=== PATIENT | female | born 1935 | race African-American/Black ===

== ENCOUNTER → 2016-06-19 | Outpatient (CLI) | payer OTHER ==
[2015-07-20 10:48] VITALS: BP 152/72
[2016-06-19 09:56] LABS: BASOPHILS # (AUTO) 0.1 X10^3/uL (0.0-0.1); BASOPHILS % (AUTO) 1.2 % (0.2-1.0); EOSINOPHILS # (AUTO) 0.2 x10^3/uL (0.0-0.2); HEMATOCRIT 37.8 % (36.0-47.0); HEMOGLOBIN 12.5 g/dL (12.0-16.0); LYMPHOCYTES # (AUTO) 2.6 X10^3/uL (1.3-2.9); LYMPHOCYTES % (AUTO) 39.1 % (21.0-51.0); MEAN CORPUSCULAR HEMOGLOBIN 28.3 pg (27.0-34.0); MEAN CORPUSCULAR HGB CONC 33.2 g/dL (33.0-35.0); MEAN CORPUSCULAR VOLUME 85.2 fL (80.0-100.0); MEAN PLATELET VOLUME 6.8 fL (7.4-11.0); MONOCYTES # (AUTO) 0.5 x10^3/uL (0.3-0.8); MONOCYTES % (AUTO) 7.9 % (0.0-13.0); NEUTROPHILS # (AUTO) 3.2 x10^3/uL (2.2-4.8); NEUTROPHILS % (AUTO) 48.8 % (42.0-75.0); PLATELET COUNT 301 X10^3/uL (150.0-450.0); RED BLOOD COUNT 4.44 X10^6/uL (3.5-5.4); RED CELL DISTRIBUTION WIDTH 13.3 % (11.6-16.5); WHITE BLOOD COUNT 6.6 X10^3/uL (3.6-10.0)
[2016-06-19 10:10] LABS: HEMOGLOBIN A1C 6.7 % (4.5-6.2)
[2016-06-19 10:53] LABS: ALBUMIN 3.8 g/dL (3.4-5.0); BLOOD UREA NITROGEN 30 mg/dL (7-18); CALCIUM 9.6 mg/dL (8.5-10.1); CARBON DIOXIDE 28.7 mmol/L (21-32); CHLORIDE 102 mmol/L (98-107); CHOL/HDL RATIO 2.3 (0.0-5.0); CHOLESTEROL 195 mg/dL (0-200); COR NA(FOR HYPERGLY) 138 mmol/L (136-145); CREATININE 1.68 mg/dL (0.55-1.02); GLUCOSE 117 mg/dL (65-99); HDL CHOLESTEROL 85 mg/dL (40-60); PHOSPHORUS 3.5 mg/dL (2.6-4.7); SODIUM 138 mmol/L (136-145); TRIGLYCERIDES 44 mg/dL (0-150); URIC ACID 6.3 mg/dL (2.6-6.0); eGFR BLACK RACES 38 (>60); eGFR NON BLACK RACES 31 (>60)
== END ==
LOC: LAB 09:34
PROVIDERS: ATTEND Internal Medicine
DX: I12.9 Hypertensive chronic kidney disease with stage 1 through stage 4 chronic kidney disease, or unspecified chronic kidney disease (principal); N18.3 Chronic kidney disease, stage 3 (moderate); E11.9 Type 2 diabetes mellitus without complications
CPT/HCPCS: 36415; 80061; 80069; 83036; 84550; 85025

== ENCOUNTER → 2016-10-23 | Outpatient (CLI) | payer OTHER ==
[2015-07-20 10:48] VITALS: BP 152/72
[2016-10-23 08:56] LABS: BASOPHILS # (AUTO) 0.1 X10^3/uL (0.0-0.1); BASOPHILS % (AUTO) 1.3 % (0.2-1.0); EOSINOPHILS # (AUTO) 0.2 x10^3/uL (0.0-0.2); EOSINOPHILS % (AUTO) 3.3 % (0.9-2.9); HEMATOCRIT 39.4 % (36.0-47.0); HEMOGLOBIN 13.1 g/dL (12.0-16.0); LYMPHOCYTES # (AUTO) 2.6 X10^3/uL (1.3-2.9); LYMPHOCYTES % (AUTO) 38.7 % (21.0-51.0); MEAN CORPUSCULAR HGB CONC 33.2 g/dL (33.0-35.0); MEAN CORPUSCULAR VOLUME 87.3 fL (80.0-100.0); MEAN PLATELET VOLUME 7.7 fL (7.4-11.0); MONOCYTES # (AUTO) 0.5 x10^3/uL (0.3-0.8); MONOCYTES % (AUTO) 7.5 % (0.0-13.0); NEUTROPHILS # (AUTO) 3.3 x10^3/uL (2.2-4.8); NEUTROPHILS % (AUTO) 49.2 % (42.0-75.0); PLATELET COUNT 276 X10^3/uL (150.0-450.0); RED BLOOD COUNT 4.52 X10^6/uL (3.5-5.4); RED CELL DISTRIBUTION WIDTH 13.9 % (11.6-16.5); WHITE BLOOD COUNT 6.7 X10^3/uL (3.6-10.0)
[2016-10-23 09:02] LABS: HEMOGLOBIN A1C 6.3 % (4.5-6.2)
[2016-10-23 09:09] LABS: ALBUMIN 3.7 g/dL (3.4-5.0); BLOOD UREA NITROGEN 31 mg/dL (7-18); CALCIUM 9.6 mg/dL (8.5-10.1); CARBON DIOXIDE 31.2 mmol/L (21-32); CHLORIDE 101 mmol/L (98-107); CHOL/HDL RATIO 1.9 (0.0-5.0); CHOLESTEROL 199 mg/dL (0-200); COR NA(FOR HYPERGLY) 138 mmol/L (136-145); CREATININE 1.63 mg/dL (0.55-1.02); HDL CHOLESTEROL 104 mg/dL (40-60); PHOSPHORUS 3.3 mg/dL (2.6-4.7); SODIUM 138 mmol/L (136-145); TRIGLYCERIDES 49 mg/dL (0-150); eGFR BLACK RACES 39 (>60); eGFR NON BLACK RACES 32 (>60)
== END | disposition home or self-care (01) | DRG 684 ==
LOC: LAB 08:32
PROVIDERS: ATTEND Internal Medicine
DX: I12.9 Hypertensive chronic kidney disease with stage 1 through stage 4 chronic kidney disease, or unspecified chronic kidney disease (principal); N18.3 Chronic kidney disease, stage 3 (moderate); E11.9 Type 2 diabetes mellitus without complications
CPT/HCPCS: 36415; 80061; 80069; 83036; 85025

== ENCOUNTER → 2017-02-03 | Outpatient (CLI) | payer OTHER ==
[2015-07-20 10:48] VITALS: BP 152/72
--- NOTE | 2017-02-08 08:21 | MG ---
HISTORY: Screening, history of benign left lumpectomy Comparison: 11/10/2015 FINDINGS: CC and MLO projections of the right and left breast were obtained. Scattered fibroglandular tissue i s present. No significant architectural distortion, mass or clustered microcalcifications can be obs erved to suggest malignancy. No skin thickening or nipple retraction is appreciated. No pathologica l lymphadenopathy can be identified. Vascular calcifications are present in both breasts. IMPRESSION: NO RADIOGRAPHIC EVIDENCE OF MALIGNANCY. ACR CATEGORY 2: Benign findings. FOLLOW-UP EXAM 1 YEAR. Diagnostic CAD was utilized and reviewed. * 0 (ZERO) - ASSESSMENT INCOMPLETE; ADDITIONAL IMAGING IS NEEDED. * / (ONE) - NEGATIVE. * 2/II (TWO) - BENIGN FINDINGS. * 3/III (THREE) - PROBABLY BENIGN FINDING; SHORT INTERVAL FOLLOW-UP SUGGESTED. * 4/IV (FOUR) - SUSPICIOUS ABNORMALITY; BIOPSY SHOULD BE CONSIDERED. * 5/V - HIGHLY SUSPICIOUS OF MALIGNANCY; BIOPSY SHOULD BE PERFORMED. A NEGATIVE X-RAY REPORT SHOULD NOT DELAY BIOPSY IF A DOMINANT OR CLINICALLY SUSPICIOUS MASS IS PRESENT; 4 TO 8 PERCENT OF CANCERS ARE NOT IDENTIFIED BY X-RAY. A NEGA TIVE REPORT MAY REINFORCE THE CLINICAL IMPRESSION. ADENOSIS AND DENSE BREASTS MAY OBSCURE AN UNDERLY ING NEOPLASM. Reported By:
== END ==
LOC: RAD 10:40
PROVIDERS: ATTEND Nurse Practitioner Family
DX: Z12.31 Encounter for screening mammogram for malignant neoplasm of breast (principal)
CPT/HCPCS: 77067

== ENCOUNTER → 2017-02-14 | Outpatient (CLI) | payer OTHER ==
[2015-07-20 10:48] VITALS: BP 152/72
[2017-02-14 09:53] LABS: BASOPHILS # (AUTO) 0.1 X10^3/uL (0.0-0.1); EOSINOPHILS # (AUTO) 0.3 x10^3/uL (0.0-0.2); EOSINOPHILS % (AUTO) 2.5 % (0.9-2.9); HEMATOCRIT 36.4 % (36.0-47.0); HEMOGLOBIN 12.2 g/dL (12.0-16.0); LYMPHOCYTES # (AUTO) 4.3 X10^3/uL (1.3-2.9); LYMPHOCYTES % (AUTO) 40.3 % (21.0-51.0); MEAN CORPUSCULAR HEMOGLOBIN 28.4 pg (27.0-34.0); MEAN CORPUSCULAR HGB CONC 33.4 g/dL (33.0-35.0); MEAN CORPUSCULAR VOLUME 84.9 fL (80.0-100.0); MEAN PLATELET VOLUME 7.6 fL (7.4-11.0); MONOCYTES # (AUTO) 0.7 x10^3/uL (0.3-0.8); MONOCYTES % (AUTO) 6.7 % (0.0-13.0); NEUTROPHILS # (AUTO) 5.2 x10^3/uL (2.2-4.8); NEUTROPHILS % (AUTO) 49.5 % (42.0-75.0); PLATELET COUNT 223 X10^3/uL (150.0-450.0); RED BLOOD COUNT 4.29 X10^6/uL (3.5-5.4); RED CELL DISTRIBUTION WIDTH 13.8 % (11.6-16.5)
[2017-02-14 10:00] LABS: HEMOGLOBIN A1C 6.8 % (4.5-6.2)
[2017-02-14 10:01] LABS: ALBUMIN 3.7 g/dL (3.4-5.0); BLOOD UREA NITROGEN 34 mg/dL (7-18); CALCIUM 9.4 mg/dL (8.5-10.1); CHLORIDE 99 mmol/L (98-107); CHOLESTEROL 171 mg/dL (0-200); CREATININE 1.67 mg/dL (0.55-1.02); HDL CHOLESTEROL 86 mg/dL (40-60); PHOSPHORUS 3.7 mg/dL (2.6-4.7); SODIUM 136 mmol/L (136-145); TRIGLYCERIDES 43 mg/dL (0-150); URIC ACID 6.7 mg/dL (2.6-6.0); eGFR BLACK RACES 38 (>60); eGFR NON BLACK RACES 31 (>60)
[2017-02-14 10:21] LABS: WHITE BLOOD COUNT 10.6 X10^3/uL (3.6-10.0)
[2017-02-14 10:24] LABS: PLATELET MORPHOLOGY COMMENT NORMAL (NORMAL)
== END ==
LOC: LAB 09:29
PROVIDERS: ATTEND Internal Medicine
DX: I12.9 Hypertensive chronic kidney disease with stage 1 through stage 4 chronic kidney disease, or unspecified chronic kidney disease (principal); N18.3 Chronic kidney disease, stage 3 (moderate); E11.22 Type 2 diabetes mellitus with diabetic chronic kidney disease
CPT/HCPCS: 36415; 80061; 80069; 83036; 84550; 85025

== ENCOUNTER → 2017-04-15 | Outpatient (CLI) | payer OTHER ==
[2015-07-20 10:48] VITALS: BP 152/72
--- NOTE | 2017-04-15 14:19 | RAD ---
Examination: Right shoulder, three views History: Neck and shoulder pain Findings: There is mild glenohumeral joint narrowing with more severe degenerative change at the acro mioclavicular joint. The humeral head is in normal position. No bone destruction or periarticular johny cification is identified. Impression: Osteoarthritis, especially involving the acromioclavicular joint. No acute findings. Reported By:
--- NOTE | 2017-04-15 14:23 | RAD ---
Examination: Cervical spine, three views History: Neck and shoulder pain Findings: There is extensive hypertrophic bony fusion noted anteriorly extending from C4 to C7. No fracture is seen. There is minimal degenerative retrolisthesis at C5-6. The atlantoaxial complex is i ntact. Impression: Extensive anterior hyperostosis at levels described is suggestive of DISH. This hypertrop hic bone impinges on the posterior wall of the hypopharynx and may be responsible for cervical dysp hagia. No acute features are demonstrated. Reported By:
== END | disposition home or self-care (01) | DRG 554 ==
LOC: RAD 13:25
PROVIDERS: ATTEND Internal Medicine Cardiovascular Disease
DX: M19.90 Unspecified osteoarthritis, unspecified site (principal); M53.82 Other specified dorsopathies, cervical region; M19.011 Primary osteoarthritis, right shoulder
CPT/HCPCS: 72040; 73030

== ENCOUNTER → 2017-05-25 | Outpatient (CLI) | payer OTHER ==
[2015-07-20 10:48] VITALS: BP 152/72
== END ==
LOC: RAD 15:50
PROVIDERS: ATTEND Internal Medicine Cardiovascular Disease
DX: I50.9 Heart failure, unspecified (principal); M19.90 Unspecified osteoarthritis, unspecified site
CPT/HCPCS: 93306

== ENCOUNTER → 2017-05-28 | Outpatient (CLI) | payer OTHER ==
[2015-07-20 10:48] VITALS: BP 152/72
[2017-05-28 09:49] LABS: BASOPHILS # (AUTO) 0.1 X10^3/uL (0.0-0.1); BASOPHILS % (AUTO) 1.2 % (0.2-1.0); EOSINOPHILS # (AUTO) 0.2 x10^3/uL (0.0-0.2); EOSINOPHILS % (AUTO) 2.3 % (0.9-2.9); HEMOGLOBIN 12.5 g/dL (12.0-16.0); LYMPHOCYTES # (AUTO) 2.7 X10^3/uL (1.3-2.9); LYMPHOCYTES % (AUTO) 36.3 % (21.0-51.0); MEAN CORPUSCULAR HEMOGLOBIN 28.8 pg (27.0-34.0); MEAN CORPUSCULAR HGB CONC 33.7 g/dL (33.0-35.0); MEAN CORPUSCULAR VOLUME 85.3 fL (80.0-100.0); MEAN PLATELET VOLUME 6.7 fL (7.4-11.0); MONOCYTES # (AUTO) 0.5 x10^3/uL (0.3-0.8); MONOCYTES % (AUTO) 7.1 % (0.0-13.0); NEUTROPHILS % (AUTO) 53.1 % (42.0-75.0); PLATELET COUNT 328 X10^3/uL (150.0-450.0); RED BLOOD COUNT 4.33 X10^6/uL (3.5-5.4); RED CELL DISTRIBUTION WIDTH 13.4 % (11.6-16.5); WHITE BLOOD COUNT 7.5 X10^3/uL (3.6-10.0)
[2017-05-28 10:03] LABS: HEMOGLOBIN A1C 6.3 %
[2017-05-28 10:05] LABS: ALBUMIN 4.1 g/dL (3.4-5.0); BLOOD UREA NITROGEN 30 mg/dL (7-18); CALCIUM 9.6 mg/dL (8.5-10.1); CHLORIDE 100 mmol/L (98-107); CHOL/HDL RATIO 2.2 (0.0-5.0); CHOLESTEROL 194 mg/dL (0-200); COR NA(FOR HYPERGLY) 136 mmol/L (136-145); CREATININE 1.65 mg/dL (0.55-1.02); HDL CHOLESTEROL 89 mg/dL (40-60); PHOSPHORUS 3.6 mg/dL (2.6-4.7); SODIUM 136 mmol/L (136-145); TRIGLYCERIDES 42 mg/dL (0-150); URIC ACID 6.6 mg/dL (2.6-6.0); eGFR BLACK RACES 38 (>60); eGFR NON BLACK RACES 32 (>60)
== END ==
LOC: LAB 09:26
PROVIDERS: ATTEND Internal Medicine
DX: I12.9 Hypertensive chronic kidney disease with stage 1 through stage 4 chronic kidney disease, or unspecified chronic kidney disease (principal); N18.3 Chronic kidney disease, stage 3 (moderate); E11.22 Type 2 diabetes mellitus with diabetic chronic kidney disease
CPT/HCPCS: 36415; 80061; 80069; 83036; 84550; 85025

== ENCOUNTER 2017-06-27 14:06 | Observation (INO) | payer OTHER ==
[2017-06-27 14:19] VITALS: BMI 30.2
--- NOTE | 2017-06-27 14:38 | DR.HTN ---
HPI - Time Seen Time seen: 14:50 - Primary Care Physician Primary Care Physician: HONG PETIT, CONSTRUCTION JOB COST ESTIMATOR - Complaints Chief Complaint Doctors Comments: Patient states that while she was in [facility] she was seen in the ED for hypertension and was advised to follow up when she returned home. She also complains of upper back pain. Chief Complaint:: PT C/O TROUBLE BREATHING AND PAIN TO HER MID BACK , AND THAT MAYA KAUFMAN SAID THE LAST TIME SHE SAW HIM HEARD FLUID, PT APPERS TO BE IN NO DISTRESS, AND HER LUNGS ARE CLEAR BILATERALY RESP EVEN AND NON-LABORDED, AND I CALLED HONG AND SHE COULD NOT SEE ME TILL 330 AND I CAN'T WAIT.. BR Self Treatment fo Chief Complaint: PT C/O INCREASED SOB ON EXERSION... PT APPEARS TO VERY WORRISOME ABOUT HER HEALTH .. BR - Source History Provided: Patient - Mode of Arrival Mode of Arrival: Ambulatory - Timing Onset of Chief Complaint: 05/16/17 PMH - PMH Past Medical History: Yes Past Medical History: Anemia, Coronary Artery Disease, Diabetes, Hypertension Past Surgical History: Yes Surgical History: Appendectomy, Cholecystectomy, Hysterectomy Past Surgical History Comment: LEFT MASECTOMY. - Family History History of Family Medical Conditions: Yes Family Medical History: [place], Coronary Artery Disease - Social History Does patient currently use any type of tobacco product: No Have you used tobacco products in the last 12 months: No Type of Tobacco Use: None Does any household member use tobacco: No Alcohol Use: None Do you use any recreational Drugs:: No Lives With: Alone Lives Where: Home - infectious screening In the last 2 months have you had wt loss of >10#?: NO Have you had fever, night sweats or hemotysis?: No Have you traveled outside the country in the last 6 months?: No Isolation: Standard ROS - Review of Systems Constitutional: No Symptoms Reported Eyes: No Symptoms Reported ENTM: No Symptoms Reported Respiratoy: No Symptoms Reported Cardiovascular: No Symptoms Reported Gastrointestinal/Abdominal: No Symptoms Reported Genitourinary: No Symptoms Reported Neurological: No Symptoms Reported Musculoskeletal: No Symptoms Reported Integumentary: No Symptoms Reported Hematologic/Lymphatic: No Symptoms Reported Endocrine: No Symptoms Reported Psychiatric: No Symptoms Reported All Other Systems: Reviewed and Negative PE - Vital Signs Vitals: Temperature 98.9 F Pulse Rate 81 Respiratory Rate 18 Blood Pressure [Left Arm] 160/75 Blood Pressure [Right Arm] 167/71 Blood Pressure 144/65 O2 Sat by Pulse Oximetry 98 - General Limitations: No Limitations General Appearance: Alert, In No Apparent Distress - Head Head Exam: Normal Inspection, Atraumatic - Eyes Eye exam: Normal Appearance, PERRL, EOMI Pupils: Regular, Round: Bilateral Sclera/Conjunctival: Normal Inspection: Bilateral - ENT ENT Exam: Normal Exam, Normal Oropharynx - Neck Neck Exam: Normal Inspection - Chest Chest Inspection: Normal Inspection, Symmetric Chest Wall Rise - Respiratory Respiratory Exam: Normal Lung Sounds Bilat Respiratory Exam: Bilateral Clear to Auscultation - Cardiovascular Cardiovascular Exam: Regular Rate, Normal Rhythm - Abdominal Exam Abdominal Exam: Normal Inspection Abdominal Tenderness: negative: RUQ, RLQ, LUQ, LLQ, Epigastrium, Suprapubic, Diffuse, Mild, Moderate, Severe, Other - Extremities Extremities Exam: Normal Inspection, Full ROM - Back Back Exam: Normal Inspection, Full ROM, Vertebral Tenderness (upper back) - Neurologic Neurological Exam: Alert, Oriented X3, CN II-XII Intact Cranial Nerve Exam: EOM Function (II, III, IV, ): Normal Cerebellar Function: Normal Gait Motor Strength - LUE: 3/5 Motor Strength - LLE: 3/5 DTR: achilles tendon (L): 2+ - Psychiatric Psychiatric Exam: Normal Affect, Normal Mood, Depressed - Skin Skin Exam: Intact ROR - Labs Reviewed Result Diagrams: 06/27/17 14:40 06/27/17 14:40 Laboratory: WBC 5.8 X10^3/uL (3.6-10.0) 06/27/17 14:40 RBC 4.23 X10^6/uL (3.5-5.4) 06/27/17 14:40 Hgb 12.2 g/dL (12.0-16.0) 06/27/17 14:40 Hct 35.9 % (36.0-47.0) L 06/27/17 14:40 MCV 84.8 fL (80.0-100.0) 06/27/17 14:40 MCH 29.0 pg (27.0-34.0) 06/27/17 14:40 MCHC 34.1 g/dL (33.0-35.0) 06/27/17 14:40 RDW 13.1 % (11.6-16.5) 06/27/17 14:40 Plt Count 316 X10^3/uL (150.0-450.0) 06/27/17 14:40 MPV 6.6 fL (7.4-11.0) L 06/27/17 14:40 Neut % (Auto) 63.4 % (42.0-75.0) 06/27/17 14:40 Lymph % (Auto) 25.1 % (21.0-51.0) 06/27/17 14:40 [place] % (Auto) 8.6 % (0.0-13.0) 06/27/17 14:40 Eos % (Auto) 2.1 % (0.9-2.9) 06/27/17 14:40 Baso % (Auto) 0.8 % (0.2-1.0) 06/27/17 14:40 Neut # (Auto) 3.7 x10^3/uL (2.2-4.8) 06/27/17 14:40 Lymph # (Auto) 1.4 X10^3/uL (1.3-2.9) 06/27/17 14:40 [place] # (Auto) 0.5 x10^3/uL (0.3-0.8) 06/27/17 14:40 Eos # (Auto) 0.1 x10^3/uL (0.0-0.2) 06/27/17 14:40 Baso # (Auto) 0.0 X10^3/uL (0.0-0.1) 06/27/17 14:40 Absolute Nucleated RBC 0.1 /100WBC 06/27/17 14:40 Sodium 135 mmol/L (136-145) L 06/27/17 14:40 Corrected Sodium 135 mmol/L (136-145) L 06/27/17 14:40 Potassium 4.4 mmol/L (3.5-5.1) 06/27/17 14:40 Chloride 99 mmol/L (98-107) 06/27/17 14:40 Carbon Dioxide 28.5 mmol/L (21-32) 06/27/17 14:40 BUN 38 mg/dL (7-18) H 06/27/17 14:40 Creatinine 1.98 mg/dL (0.55-1.02) H 06/27/17 14:40 Est GFR (MDRD) Af Amer 31 (>60) L 06/27/17 14:40 Est GFR (MDRD) Non-Af 26 (>60) L 06/27/17 14:40 Glucose 118 mg/dL (65-99) H 06/27/17 14:40 Calcium 8.6 mg/dL (8.5-10.1) 06/27/17 14:40 Corrected Calcium TNP 06/27/17 14:40 Total Bilirubin 0.30 mg/dL (0.2-1.0) 06/27/17 14:40 AST 31 Units/L (15-37) 06/27/17 14:40 ALT 32 Units/L (12-78) 06/27/17 14:40 Alkaline Phosphatase 64 Units/L (46-116) 06/27/17 14:40 Total Protein 8.3 g/dL (6.4-8.2) H 06/27/17 14:40 Albumin 3.9 g/dL (3.4-5.0) 06/27/17 14:40 Globulin 4.4 g/dL (2.5-4.5) 06/27/17 14:40 Albumin/Globulin Ratio 0.9 Ratio (1.1-2.1) L 06/27/17 14:40 - XRAY XRAY Interpreted by: Radiologist (Thoracic spine: The upper throacic spine is obscured on the lateral view by overlying structures. Visualied vertebral body heights and alignment are normal. No acute fracture or subluxation is identified. Mild multilevel degenerative disc disease is present, most significant within the mid thoracic spine. Surrounding soft tissues are unremarkable. Impression: No acute radiographic abnormality of the visualized thoracic spine. Chest; A single upright portable view is submitted. No infiltrate, effusion or pneumothorax identified. The cardiac and mediastinal contours are witnin normal limits. The soft tissues are unremarkable.) - Diagnosis Discharge Problem: Prerenal azotemia DJD (degenerative joint disease) of thoracic spine Qualifiers: Spinal osteoarthritis complication: with radiculopathy Qualified Code(s): M47.24 - Other spondylosis with radiculopathy, thoracic region - Discharge Plan Condition: Stable - Follow ups/Referrals Follow ups/Referrals: NFD,None [Primary Care Provider] - 3 days - Instructions
[2017-06-27 14:48] LABS: BASOPHILS % (AUTO) 0.8 % (0.2-1.0); EOSINOPHILS # (AUTO) 0.1 x10^3/uL (0.0-0.2); EOSINOPHILS % (AUTO) 2.1 % (0.9-2.9); HEMATOCRIT 35.9 % (36.0-47.0); HEMOGLOBIN 12.2 g/dL (12.0-16.0); LYMPHOCYTES # (AUTO) 1.4 X10^3/uL (1.3-2.9); LYMPHOCYTES % (AUTO) 25.1 % (21.0-51.0); MEAN CORPUSCULAR HGB CONC 34.1 g/dL (33.0-35.0); MEAN CORPUSCULAR VOLUME 84.8 fL (80.0-100.0); MEAN PLATELET VOLUME 6.6 fL (7.4-11.0); MONOCYTES # (AUTO) 0.5 x10^3/uL (0.3-0.8); MONOCYTES % (AUTO) 8.6 % (0.0-13.0); NEUTROPHILS # (AUTO) 3.7 x10^3/uL (2.2-4.8); NEUTROPHILS % (AUTO) 63.4 % (42.0-75.0); PLATELET COUNT 316 X10^3/uL (150.0-450.0); RED BLOOD COUNT 4.23 X10^6/uL (3.5-5.4); RED CELL DISTRIBUTION WIDTH 13.1 % (11.6-16.5); WHITE BLOOD COUNT 5.8 X10^3/uL (3.6-10.0)
[2017-06-27 15:01] LABS: ALANINE AMINOTRANSFERASE 32 Units/L (12-78); ALBUMIN 3.9 g/dL (3.4-5.0); ALKALINE PHOSPHATASE 64 Units/L (46-116); ASPARTATE AMINO TRANSFERASE 31 Units/L (15-37); BLOOD UREA NITROGEN 38 mg/dL (7-18); CALCIUM 8.6 mg/dL (8.5-10.1); CARBON DIOXIDE 28.5 mmol/L (21-32); CHLORIDE 99 mmol/L (98-107); COR NA(FOR HYPERGLY) 135 mmol/L (136-145); CREATININE 1.98 mg/dL (0.55-1.02); SODIUM 135 mmol/L (136-145); TOTAL PROTEIN 8.3 g/dL (6.4-8.2); eGFR BLACK RACES 31 (>60); eGFR NON BLACK RACES 26 (>60)
--- NOTE | 2017-06-27 15:38 | RAD ---
HISTORY: Shortness of breath Study: Single view chest Comparison: 01/19/2014 Findings: A single upright portable view is submitted. No infiltrate, effusion or pneumothorax identified. The cardiac and mediastinal contours are within normal limits. The soft tissues are unremarkable. IMPRESSION: 1. No acute cardiopulmonary abnormality. Reported By:
--- NOTE | 2017-06-27 15:39 | RAD ---
Thoracic spine, three views Indication: Neck and right shoulder pain, denies injury Comparison: None Findings: The upper thoracic spine is obscured on the lateral view by overlying structures. Visualize d vertebral body heights and alignment are normal. No acute fracture or subluxation is identified. Mi ld multilevel degenerative disc disease is present, most significant within the mid thoracic spine. S urrounding soft tissues are unremarkable. Impression: No acute radiographic abnormality of the visualized thoracic spine. Reported By:
[2017-06-27] MEDS ORDERED: NS 1000 ML 1,000 ML ONE (16:35)
[2017-06-27] MEDS: NS 1000 ML 1,000 ML IV SCH (16:54)
[2017-06-27] MEDS: VALIUM PO PRN (17:50)
[2017-06-27 19:30] LABS: CKMB % 0.6 % (<4); CREATINE KINASE 330 Units/L (26-192); TROPONIN I < 0.02 ng/mL (0-1.5)
[2017-06-27] MEDS: MIRAPEX TAB 0.25 MG PO SCH (20:29)
[2017-06-27] MEDS: ZOCOR TAB 40 MG PO SCH (20:29)
[2017-06-27] MEDS: ANTIVERT TAB 25 MG PO SCH (21:01)
[2017-06-27] MEDS: CALAN SR 120 MG PO SCH (22:27)
[2017-06-27] MEDS ORDERED: TYLENOL 325 MG TAB PO PRN (22:28)
[2017-06-28 01:34] LABS: CKMB % 0.6 % (<4); CREATINE KINASE 265 Units/L (26-192); CREATINE KINASE MB 1.5 ng/mL (0-4.0); TROPONIN I < 0.02 ng/mL (0-1.5)
[2017-06-28] MEDS: NS 1000 ML 1,000 ML IV SCH ×5 (03:20→19:21)
[2017-06-28] MEDS: ANTIVERT TAB 25 MG PO SCH ×3 (05:52→22:15)
--- NOTE | 2017-06-28 06:02 | RAD ---
HISTORY: Shortness of breath Study: Chest AP portable Comparison: 06/27/2017 Findings: The heart is mildly enlarged. No congestive heart failure is noted. No acute alveolar infiltrates or pleural effusions are identified. The bony thorax is unremarkable. IMPRESSION: Mild cardiomegaly without congestive heart failure Lungs clear Reported By:
[2017-06-28 06:10] LABS: BASOPHILS # (AUTO) 0.1 X10^3/uL (0.0-0.1); BASOPHILS % (AUTO) 0.9 % (0.2-1.0); EOSINOPHILS # (AUTO) 0.2 x10^3/uL (0.0-0.2); EOSINOPHILS % (AUTO) 2.7 % (0.9-2.9); HEMOGLOBIN 11.5 g/dL (12.0-16.0); LYMPHOCYTES # (AUTO) 2.7 X10^3/uL (1.3-2.9); LYMPHOCYTES % (AUTO) 38.9 % (21.0-51.0); MEAN CORPUSCULAR HEMOGLOBIN 28.8 pg (27.0-34.0); MEAN CORPUSCULAR HGB CONC 33.8 g/dL (33.0-35.0); MEAN CORPUSCULAR VOLUME 85.4 fL (80.0-100.0); MEAN PLATELET VOLUME 7.3 fL (7.4-11.0); MONOCYTES # (AUTO) 0.6 x10^3/uL (0.3-0.8); MONOCYTES % (AUTO) 8.3 % (0.0-13.0); NEUTROPHILS # (AUTO) 3.4 x10^3/uL (2.2-4.8); NEUTROPHILS % (AUTO) 49.2 % (42.0-75.0); PLATELET COUNT 284 X10^3/uL (150.0-450.0); RED BLOOD COUNT 3.98 X10^6/uL (3.5-5.4); RED CELL DISTRIBUTION WIDTH 12.9 % (11.6-16.5)
[2017-06-28 07:07] LABS: ALANINE AMINOTRANSFERASE 30 Units/L (12-78); ALBUMIN 3.3 g/dL (3.4-5.0); ALKALINE PHOSPHATASE 52 Units/L (46-116); ASPARTATE AMINO TRANSFERASE 26 Units/L (15-37); BLOOD UREA NITROGEN 26 mg/dL (7-18); CALCIUM 8.1 mg/dL (8.5-10.1); CARBON DIOXIDE 24.5 mmol/L (21-32); CHLORIDE 103 mmol/L (98-107); CKMB % 0.6 % (<4); COR CA(FOR HYPOALB) 8.7 mg/dL (8.5-10.1); CREATINE KINASE 232 Units/L (26-192); CREATINE KINASE MB 1.4 ng/mL (0-4.0); CREATININE 1.39 mg/dL (0.55-1.02); SODIUM 137 mmol/L (136-145); TOTAL PROTEIN 7.1 g/dL (6.4-8.2); TROPONIN I < 0.02 ng/mL (0-1.5); eGFR BLACK RACES 47 (>60); eGFR NON BLACK RACES 39 (>60)
[2017-06-28] MEDS: FOLIC ACID TAB 1 MG PO SCH (09:26)
[2017-06-28] MEDS: SINGULAIR TAB 10 MG PO SCH (09:27)
[2017-06-28] MEDS: FERROUS GLUCONATE PO SCH (09:27)
[2017-06-28] MEDS: VITAMIN B-12 PO SCH (09:27)
[2017-06-28] MEDS: MIRAPEX TAB 0.25 MG PO SCH ×2 (09:27→20:24)
[2017-06-28] MEDS: LOVAZA PO SCH (09:27)
[2017-06-28] MEDS: VALIUM PO PRN (09:31)
[2017-06-28] MEDS: CALAN SR 120 MG PO SCH ×2 (12:38→20:26)
--- NOTE | 2017-06-28 14:00 | DR.H&P ---
H&P - History & Physical for Day of: H&P Date: 06/27/17 - Chief Complaint Chief Complaint: ELEVATED BLOOD PRESSURE, FITZPATRICK, DIZZINESS - Allergies Allergies/Adverse Reactions: Allergies Allergy/AdvReac Type Severity Reaction Status Date / Time penicillin G procaine Allergy Verified 06/27/17 14:12 NOVACAINE Allergy Uncoded 06/27/17 14:12 - History of Present Illness History of Present Illness: 81 BF ER ADMISSON AFTER PRESENTING WITH CO ELEVATED BP, OSEI, FITZPATRICK AND DIZZINESS. PT HAS PMH OF DM, HTN, OA, CRF, PULMONARY HTN, CAD. 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 PT STATES SHE WAS VISITING FAMILY IN [facility] AND BP WAS >200 SYSTOLIC AND HAD TO BE SEEN IN ER. PT CO INCREASED SOB AND PAIN IN MID BACK. PT STATES PT STARTED ON TRAIN RIDE FROM [facility], THOUGHT "IT COULD BE ARTHRITIS". PT HAD ABNORMAL CMP IN ER AND ELEVATED DDIMER. PT ADMITTED FOR EVLAUATION OF SOB. PT HAS VQ SCAN ORDERED, SERIAL CE AND EKGS - Past Medical History Past Medical History: Anemia, Anxiety, Arthritis, Coronary Artery Disease, Diabetes, Hypertension, Renal Disease - Past Surgical History Surgical History: Appendectomy, Cholecystectomy, Hysterectomy, Other - Family History Family Medical History: Diabetes Mellitus, Cancer, [place], Coronary Artery Disease, Hypertension - Social History Does patient currently use any type of tobacco product: No Have you used tobacco products in the last 12 months: No Type of Tobacco Use: None Does any household member use tobacco: No Alcohol Use: None Drug Use: Prescription Drugs - Medications Home Medications: Acetaminophen [TYLENOL 500 MG TAB EXTRA-STRENGTH *] 2 tabs PO Q4H PRN 06/27/17 [ History Confirmed 06/27/17] Ascorbic Acid [Vitamin C] 500 mg PO DAILY 06/27/17 [History Confirmed 06/27/17] Azelastine HCl [Astelin Nasal [place]] 137 mcg INH DAILY 06/27/17 [History Confirmed 06/27/17] Cyanocobalamin (Vitamin B-12) [B-12] 1 tab PO DAILY 06/27/17 [History Confirmed 06/27/17] Ergocalciferol (Vitamin D2) [Vitamin D2] 1 tab PO WEEKLY 06/27/17 [History Confirmed 06/27/17] Ferrous Gluconate [Iron] 65 mg PO DAILY 06/27/17 [History Confirmed 06/27/17] Montelukast Sodium 1 tab PO DAILY 06/27/17 [History Confirmed 06/27/17] Hubbard 3,6,9 Combination No.7 [Hubbard Dha] 1 cap PO DAILY 06/27/17 [History Confirmed 06/27/17] Pramipexole Di-HCl [Mirapex] 1 tab PO BID 06/27/17 [History Confirmed 06/27/17] Verapamil HCl [Verapamil HCl SR] 120 mg PO BID 06/27/17 [History Confirmed 06/27] - Review of Systems Constitutional: Weakness Eyes: No Symptoms Reported ENT: No Symptoms Reported Respiratory: SOB with Excertion Cardiovascular: No Symptoms Reported Gastrointestinal: No Symptoms Reported Genitourinary: No Symptoms Reported Musculoskeletal: Back Pain Skin: No Symptoms Reported Neurological: No Symptoms Reported - Physical Exam Vital Signs: Temperature 98.1 F Pulse Rate [Right Radial] 72 Pulse Rate 81 Respiratory Rate 20 Blood Pressure [Left Arm] 157/71 Blood Pressure [Right Arm] 167/71 Blood Pressure 144/65 O2 Sat by Pulse Oximetry 98 Oriented: Normal Eyes: Normal Ear: Normal Nose: Normal Throat: Normal Respiratory: RLL Diminished, LLL Diminished Cardiovascular: Other (PACE MAKER PRESENT) : Normal Auscultation: Bowel Sounds: Normal Palpation: Normal Tenderness: Normal Skin: Normal Musculoskeletal: Back:Thoracic, Back:Lumbar Psychiatric: Anxiety Affect: Anxious Speech Pattern: Clear, Appropriate - Assessment/Plan (1) Dyspnea Status: Acute Plan: ADMIT, SERIAL CE AND EKG. TELEMETRY, OBTAIN LAST ECHO REPORT. BP CONTROL , AM LABS. I & OS, V Q SCAN R/O PE. SUPPLEMENTAL O2 (2) CRF (chronic renal failure) Status: Acute (3) CHF (congestive heart failure) Status: Acute (4) Diabetes Status: Acute (5) DJD (degenerative joint disease) of thoracic spine Qualifiers: Spinal osteoarthritis complication: with radiculopathy Qualified Code(s): M47.24 - Other spondylosis with radiculopathy, thoracic region Status: Acute (6) Hypertension Status: Acute
[2017-06-28] MEDS: ASPIRIN PO SCH (14:47)
--- NOTE | 2017-06-28 18:02 | PCM.PROG ---
Progress Note - Progress Note for Day of Date: 06/28/17 - Subjective Subjective: 81 ER ADMISSION ON 06/27 WITH ELEVATED BP, OSEI, AND DIZZINESS. PT ADMITTED FOR SERIAL CE, EKG'S BP CONTROL. PT TO HAVE V Q SCAN TODAY R/O PE. PT CO NEEDING HOME BP MEDICATION RESUMED. PT ALSO CO ANXIETY AND DIFFICULTY RESTING. PT CO MID BACK / T SPINE TENDERNESS - Past Medical Family Social History Past Med/Fam/Surg Hx: No changes since H&P Allergies: Allergies penicillin G procaine Allergy (Verified 06/27/17 14:12) NOVACAINE Allergy (Uncoded 06/27/17 14:12) - Review of Systems ROS: No change since H&P - Vital Signs and I&O's Vital Signs: Temperature 98.0 F Pulse Rate [Right Radial] 81 Pulse Rate 81 Respiratory Rate 18 Blood Pressure [Left Arm] 188/78 Blood Pressure [Right Arm] 167/71 Blood Pressure 144/65 O2 Sat by Pulse Oximetry 97 Intake and Output: Intake & Output 06/26/17 06/27/17 06/28/17 06/29/17 11:59 11:59 11:59 11:59 Intake Total 1500 1588 Balance 1500 1588 - Physical Exam Oriented: Normal Eyes: Normal Ear: Normal Nose: Normal Throat: Normal Respiratory: Diminished Cardiovascular: Other (PACE MAKER PRESENT) : Normal Auscultation: Bowel Sounds: Normal Tenderness: Normal Skin: Normal Musculoskeletal: Back:Thoracic, Back:Lumbar Psychiatric: Anxiety Affect: Anxious Speech Pattern: Clear, Appropriate - Laboratory and Diagnostics Result Diagrams: 06/28/17 04:27 06/28/17 04:27 Labs: Laboratory WBC 7.0 X10^3/uL (3.6-10.0) 06/28/17 04:27 RBC 3.98 X10^6/uL (3.5-5.4) 06/28/17 04:27 Hgb 11.5 g/dL (12.0-16.0) L 06/28/17 04:27 Hct 34.0 % (36.0-47.0) L 06/28/17 04:27 MCV 85.4 fL (80.0-100.0) 06/28/17 04:27 MCH 28.8 pg (27.0-34.0) 06/28/17 04:27 MCHC 33.8 g/dL (33.0-35.0) 06/28/17 04:27 RDW 12.9 % (11.6-16.5) 06/28/17 04:27 Plt Count 284 X10^3/uL (150.0-450.0) 06/28/17 04:27 MPV 7.3 fL (7.4-11.0) L 06/28/17 04:27 Neut % (Auto) 49.2 % (42.0-75.0) 06/28/17 04:27 Lymph % (Auto) 38.9 % (21.0-51.0) 06/28/17 04:27 [place] % (Auto) 8.3 % (0.0-13.0) 06/28/17 04:27 Eos % (Auto) 2.7 % (0.9-2.9) 06/28/17 04:27 Baso % (Auto) 0.9 % (0.2-1.0) 06/28/17 04:27 Neut # (Auto) 3.4 x10^3/uL (2.2-4.8) 06/28/17 04:27 Lymph # (Auto) 2.7 X10^3/uL (1.3-2.9) 06/28/17 04:27 [place] # (Auto) 0.6 x10^3/uL (0.3-0.8) 06/28/17 04:27 Eos # (Auto) 0.2 x10^3/uL (0.0-0.2) 06/28/17 04:27 Baso # (Auto) 0.1 X10^3/uL (0.0-0.1) 06/28/17 04:27 Absolute Nucleated RBC 0.0 /100WBC 06/28/17 04:27 D-Dimer 2390 ng/mL (0-400) H* 06/27/17 14:40 Sodium 137 mmol/L (136-145) 06/28/17 04:27 Corrected Sodium TNP 06/28/17 04:27 Potassium 4.4 mmol/L (3.5-5.1) 06/28/17 04:27 Chloride 103 mmol/L (98-107) 06/28/17 04:27 Carbon Dioxide 24.5 mmol/L (21-32) 06/28/17 04:27 BUN 26 mg/dL (7-18) H 06/28/17 04:27 Creatinine 1.39 mg/dL (0.55-1.02) H 06/28/17 04:27 Est GFR (MDRD) Af Amer 47 (>60) L 06/28/17 04:27 Est GFR (MDRD) Non-Af 39 (>60) L 06/28/17 04:27 Glucose 97 mg/dL (65-99) 06/28/17 04:27 POC Glucose (mg/dL) 105 mg/dL (65-99) H 06/28/17 16:52 Calcium 8.1 mg/dL (8.5-10.1) L 06/28/17 04:27 Corrected Calcium 8.7 mg/dL (8.5-10.1) 06/28/17 04:27 Total Bilirubin 0.30 mg/dL (0.2-1.0) 06/28/17 04:27 AST 26 Units/L (15-37) 06/28/17 04:27 ALT 30 Units/L (12-78) 06/28/17 04:27 Alkaline Phosphatase 52 Units/L (46-116) 06/28/17 04:27 Creatine Kinase 232 Units/L (26-192) H 06/28/17 04:27 CK-MB (CK-2) 1.4 ng/mL (0-4.0) 06/28/17 04:27 CK/CKMB % Calc 0.6 % (<4) 06/28/17 04:27 Troponin I < 0.02 ng/mL (0-1.5) 06/28/17 04:27 Total Protein 7.1 g/dL (6.4-8.2) 06/28/17 04:27 Albumin 3.3 g/dL (3.4-5.0) L 06/28/17 04:27 Globulin 3.8 g/dL (2.5-4.5) 06/28/17 04:27 Albumin/Globulin Ratio 0.9 Ratio (1.1-2.1) L 06/28/17 04:27 - Plan (1) Dyspnea Status: Acute Plan: SERIAL CE AND EKG ON ADMISSION. TELEMETRY, OBTAIN LAST ECHO REPORT. BP CONTROL, AM LABS. I & OS, NPO FOR V Q SCAN R/O PE THIS AM. SUPPLEMENTAL O2 (2) CRF (chronic renal failure) Status: Acute (3) CHF (congestive heart failure) Status: Acute Plan: I & OS, SUPPLEMENT O2. BP CONTROL (4) Diabetes Status: Acute (5) DJD (degenerative joint disease) of thoracic spine Status: Acute Qualifiers: Spinal osteoarthritis complication: with radiculopathy Qualified Code(s): M47.24 - Other spondylosis with radiculopathy, thoracic region (6) Hypertension Status: Acute Plan: RESUME HOME MEDS,. MONITOR
[2017-06-28] MEDS: ZOCOR TAB 40 MG PO SCH (20:24)
[2017-06-28] MEDS: CATAPRES TAB 0.2 MG PO SCH (20:24)
[2017-06-29 05:45] LABS: BASOPHILS # (AUTO) 0.1 X10^3/uL (0.0-0.1); BASOPHILS % (AUTO) 1.1 % (0.2-1.0); EOSINOPHILS # (AUTO) 0.2 x10^3/uL (0.0-0.2); EOSINOPHILS % (AUTO) 2.7 % (0.9-2.9); HEMATOCRIT 34.6 % (36.0-47.0); HEMOGLOBIN 11.8 g/dL (12.0-16.0); LYMPHOCYTES # (AUTO) 2.6 X10^3/uL (1.3-2.9); LYMPHOCYTES % (AUTO) 40.6 % (21.0-51.0); MEAN CORPUSCULAR HEMOGLOBIN 28.9 pg (27.0-34.0); MEAN CORPUSCULAR VOLUME 84.8 fL (80.0-100.0); MEAN PLATELET VOLUME 7.5 fL (7.4-11.0); MONOCYTES # (AUTO) 0.5 x10^3/uL (0.3-0.8); MONOCYTES % (AUTO) 7.3 % (0.0-13.0); NEUTROPHILS # (AUTO) 3.1 x10^3/uL (2.2-4.8); NEUTROPHILS % (AUTO) 48.3 % (42.0-75.0); PLATELET COUNT 284 X10^3/uL (150.0-450.0); RED BLOOD COUNT 4.08 X10^6/uL (3.5-5.4); RED CELL DISTRIBUTION WIDTH 13.2 % (11.6-16.5); WHITE BLOOD COUNT 6.4 X10^3/uL (3.6-10.0)
[2017-06-29 05:57] LABS: ALANINE AMINOTRANSFERASE 31 Units/L (12-78); ALBUMIN 3.1 g/dL (3.4-5.0); ALKALINE PHOSPHATASE 53 Units/L (46-116); ASPARTATE AMINO TRANSFERASE 26 Units/L (15-37); BLOOD UREA NITROGEN 21 mg/dL (7-18); CALCIUM 7.8 mg/dL (8.5-10.1); CARBON DIOXIDE 25.8 mmol/L (21-32); CHLORIDE 102 mmol/L (98-107); COR CA(FOR HYPOALB) 8.5 mg/dL (8.5-10.1); CREATININE 1.28 mg/dL (0.55-1.02); SODIUM 135 mmol/L (136-145); TOTAL PROTEIN 7.1 g/dL (6.4-8.2); eGFR BLACK RACES 52 (>60); eGFR NON BLACK RACES 43 (>60)
[2017-06-29] MEDS: ANTIVERT TAB 25 MG PO SCH ×2 (06:12→16:48)
[2017-06-29] MEDS ORDERED: VITAMIN D (1.25MG) PO SCH (09:00)
[2017-06-29] MEDS: MIRAPEX TAB 0.25 MG PO SCH (09:31)
[2017-06-29] MEDS: LOVAZA PO SCH (09:32)
[2017-06-29] MEDS: VALIUM PO PRN (09:33)
[2017-06-29] MEDS: FERROUS GLUCONATE PO SCH (09:33)
[2017-06-29] MEDS: SINGULAIR TAB 10 MG PO SCH (09:33)
[2017-06-29] MEDS: VITAMIN B-12 PO SCH (09:33)
[2017-06-29] MEDS: CATAPRES TAB 0.2 MG PO SCH (09:33)
[2017-06-29] MEDS: FOLIC ACID TAB 1 MG PO SCH (09:33)
[2017-06-29] MEDS: CALAN SR 120 MG PO SCH (09:33)
[2017-06-29] MEDS: ASPIRIN PO SCH (09:33)
--- NOTE | 2017-06-29 15:09 | CT ---
CT CHEST WITH IV CONTRAST - PE PROTOCOL HISTORY: Dyspnea Comparison: None Technique: Non gated axial images of the chest were obtained with intravenous contrast according to p monary embolism protocol. MIPS were reconstructed. Dose reduction techniques including Automated Ex posure Control (AEC) and adjustment of mA and kV were utlized. Findings: No evidence of a pulmonary embolism to the level of the segmental pulmonary arteries. The heart is normal in size. No pericardial effusion. No suspicious mediastinal or axillary lymph no angie. No focal consolidations, pleural effusions or pneumothorax. Airways are patent. No suspicious pulmona ry nodules or masses. Limited images of the upper abdomen are unremarkable. No aggressive osseous lesions. IMPRESSION: 1. No evidence of pulmonary embolism. Reported By:
[2017-06-29 16:52] VITALS: BP 119/56
--- NOTE | 2017-06-29 18:00 | PCM.DCPLAN ---
Discharge Summary - Admission Date Date of Admission: 06/27/17 - Discharge Date Discharge Date: 06/29/17 - Admission Diagnoses (1) Dyspnea Status: Acute (2) CRF (chronic renal failure) Status: Acute (3) CHF (congestive heart failure) Status: Acute (4) Diabetes Status: Acute (5) DJD (degenerative joint disease) of thoracic spine Status: Acute (6) Hypertension Status: Acute - Discharge Diagnoses Discharge Diagnosis: SAME ADMISSION - Discharge Medications Discharge Medications: Acetaminophen [TYLENOL 500 MG TAB EXTRA-STRENGTH *] 2 tabs PO Q4H PRN 06/27/17 [ History] Ascorbic Acid [Vitamin C] 500 mg PO DAILY 06/27/17 [History] Azelastine HCl [Astelin Nasal [place]] 137 mcg INH DAILY 06/27/17 [History] Cyanocobalamin (Vitamin B-12) [B-12] 1 tab PO DAILY 06/27/17 [History] Ergocalciferol (Vitamin D2) [Vitamin D2] 1 tab PO WEEKLY 06/27/17 [History] Ferrous Gluconate [Iron] 65 mg PO DAILY 06/27/17 [History] Montelukast Sodium 1 tab PO DAILY 06/27/17 [History] [place] 3,6,9 Combination No.7 [[place] Dha] 1 cap PO DAILY 06/27/17 [History] Pramipexole Di-HCl [Mirapex] 1 tab PO BID 06/27/17 [History] Verapamil HCl [Verapamil HCl SR] 120 mg PO BID 06/27/17 [History] Clonidine HCl [CATAPRES 0.2 MG TAB *] 0.2 mg PO BID #60 tab 06/29/17 [Rx] - Hospital Course Vital Signs: Temperature 97.4 F Pulse Rate [Right Radial] 59 Pulse Rate 81 Respiratory Rate 20 Blood Pressure [Left Arm] 119/56 Blood Pressure [Right Arm] 167/71 Blood Pressure 144/65 O2 Sat by Pulse Oximetry 100 Latest Lab Results: Laboratory Last Values WBC 6.4 X10^3/uL (3.6-10.0) 06/29/17 04:23 RBC 4.08 X10^6/uL (3.5-5.4) 06/29/17 04:23 Hgb 11.8 g/dL (12.0-16.0) L 06/29/17 04:23 Hct 34.6 % (36.0-47.0) L 06/29/17 04:23 MCV 84.8 fL (80.0-100.0) 06/29/17 04:23 MCH 28.9 pg (27.0-34.0) 06/29/17 04:23 MCHC 34.0 g/dL (33.0-35.0) 06/29/17 04:23 RDW 13.2 % (11.6-16.5) 06/29/17 04:23 Plt Count 284 X10^3/uL (150.0-450.0) 06/29/17 04:23 MPV 7.5 fL (7.4-11.0) 06/29/17 04:23 Neut % (Auto) 48.3 % (42.0-75.0) 06/29/17 04:23 Lymph % (Auto) 40.6 % (21.0-51.0) 06/29/17 04:23 [place] % (Auto) 7.3 % (0.0-13.0) 06/29/17 04:23 Eos % (Auto) 2.7 % (0.9-2.9) 06/29/17 04:23 Baso % (Auto) 1.1 % (0.2-1.0) H 06/29/17 04:23 Neut # (Auto) 3.1 x10^3/uL (2.2-4.8) 06/29/17 04:23 Lymph # (Auto) 2.6 X10^3/uL (1.3-2.9) 06/29/17 04:23 [place] # (Auto) 0.5 x10^3/uL (0.3-0.8) 06/29/17 04:23 Eos # (Auto) 0.2 x10^3/uL (0.0-0.2) 06/29/17 04:23 Baso # (Auto) 0.1 X10^3/uL (0.0-0.1) 06/29/17 04:23 Absolute Nucleated RBC 0.0 /100WBC 06/29/17 04:23 D-Dimer 2390 ng/mL (0-400) H* 06/27/17 14:40 Sodium 135 mmol/L (136-145) L 06/29/17 04:23 Corrected Sodium TNP 06/29/17 04:23 Potassium 4.2 mmol/L (3.5-5.1) 06/29/17 04:23 Chloride 102 mmol/L (98-107) 06/29/17 04:23 Carbon Dioxide 25.8 mmol/L (21-32) 06/29/17 04:23 BUN 21 mg/dL (7-18) H 06/29/17 04:23 Creatinine 1.28 mg/dL (0.55-1.02) H 06/29/17 04:23 Est GFR (MDRD) Af Amer 52 (>60) L 06/29/17 04:23 Est GFR (MDRD) Non-Af 43 (>60) L 06/29/17 04:23 Glucose 101 mg/dL (65-99) H 06/29/17 04:23 POC Glucose (mg/dL) 115 mg/dL (65-99) H 06/29/17 11:43 Calcium 7.8 mg/dL (8.5-10.1) L 06/29/17 04:23 Corrected Calcium 8.5 mg/dL (8.5-10.1) 06/29/17 04:23 Total Bilirubin 0.30 mg/dL (0.2-1.0) 06/29/17 04:23 AST 26 Units/L (15-37) 06/29/17 04:23 ALT 31 Units/L (12-78) 06/29/17 04:23 Alkaline Phosphatase 53 Units/L (46-116) 06/29/17 04:23 Creatine Kinase 232 Units/L (26-192) H 06/28/17 04:27 CK-MB (CK-2) 1.4 ng/mL (0-4.0) 06/28/17 04:27 CK/CKMB % Calc 0.6 % (<4) 06/28/17 04:27 Troponin I < 0.02 ng/mL (0-1.5) 06/28/17 04:27 Total Protein 7.1 g/dL (6.4-8.2) 06/29/17 04:23 Albumin 3.1 g/dL (3.4-5.0) L 06/29/17 04:23 Globulin 4.0 g/dL (2.5-4.5) 06/29/17 04:23 Albumin/Globulin Ratio 0.8 Ratio (1.1-2.1) L 06/29/17 04:23 Hospital Course: PT 80 BF ER ADMISSION AFTER PRESENTING WITH CO ELEVATED BP AND DIZZINESS. PT ALSO CO MID BACK PAIN BETWEEN SHOULDER BLADES. PT REPORTS SHE RECENTLY TOOK A TRAIN TRIP TO [facility] AND WHILE VISITING HER BP BECAME VERY HIGH AND SHE WAS SEEN IN ER IN [place]. PT STATES DR IN [place] INCREASED HER CATAPRES TO 0.2 MG BUT SHE DID NOT HAVE A NEW RX. PT WAS INSTRUCTED TO FOLLOW UP WITH PCP WHEN RETURNING HOME. PT CO FITZPATRICK AND DIZZINESS AND HER BP WAS STILL ELEVATED. PT PRESENTED TO ER WITH CO. PT ALSO STATES HER MID BACK STARTED HURTING DURING TRAIN RIDE. PT STATES "FEEL LIKE ITS ARTHRITIS IN MIDDLE OF BACK" PT HAD ELEVATED D DIMER IN ER AND WELL AND ELEVATED BUN AND CREATININE ABOVE BASELINE. PT R/O PE. PT HAD SERIAL CARDIAC ENZYMES AND EKG, STABLE CXR ON ADMISSION. PT BP STABLE AND PT CO NO CHEST PAIN. PT HAD CTA CHEST NEGATIVE FOR PE. PT ALLOWED TO D/C HOME TO RESUME HOME MEDS INCLUDING CATAPRES .[address] UP WITH DR CHRISTENSEN IN ONE WEEK AND DR TREJO SCHEDULED - Discharge Plan Disposition: 01 HOME, SELF-CARE Condition: Stable Prescriptions: Clonidine HCl [CATAPRES 0.2 MG TAB *] 0.2 mg PO BID #60 tab - Follow ups/Referrals Follow ups/Referrals: HONG PETIT [Nurse Practitioner] - 07/06/17 1:30 pm - Instructions Instructions: Osteoarthritis, Diabetes Mellitus and Sick Day Management, Hyperglycemia, [id number], Shortness of Breath, Adult, Serum Creatinine Test, Chronic Kidney Disease, Adult, [id number], Heart Failure, [id number] Forms: Patient Portal
== END 2017-06-29 17:05 | disposition home or self-care (01) ==
LOC: ER 14:21 → MED/SURG 16:46
PROVIDERS: ADMIT Internal Medicine; ATTEND Internal Medicine
DX: R06.09 Other forms of dyspnea (principal); N18.9 Chronic kidney disease, unspecified; I50.9 Heart failure, unspecified; E11.65 Type 2 diabetes mellitus with hyperglycemia; M47.24 Other spondylosis with radiculopathy, thoracic region; I10 Essential (primary) hypertension; R06.02 Shortness of breath; R79.89 Other specified abnormal findings of blood chemistry; M54.89 Other dorsalgia; R94.31 Abnormal electrocardiogram [ECG] [EKG]; R51 Headache; R42 Dizziness and giddiness; F41.8 Other specified anxiety disorders; I25.10 Atherosclerotic heart disease of native coronary artery without angina pectoris; R94.4 Abnormal results of kidney function studies
CPT/HCPCS: 36415; 71045; 71275; 72072; 80053; 82550; 82553; 84484; 85025; 85378; 93005; 93010; 94760; 96365; 96374; 99284; A4216; A4222; G0378